=== PATIENT | male | born 1985 | race Caucasian/White ===

== ENCOUNTER 2018-12-05 09:22 | Emergency (ER) | payer BC ==
[~2018-12-05] VITALS: Ht 180.3 cm; Wt 111.0 kg
[~2018-12-05 09:22] MED LIST: ALBU18HF INHALATION; ALBU8.5H8 INH; AMOX1TAB9 PO; AMOX500C2 PO; CETI10CA PO; ERYT1OIN6 RIGHT EYE; GUAI5SYR2 PO; HYDR-3498 PO; HYDR-906 PO; IBUP-1542 PO
[2018-12-05 09:37] VITALS: BP 136/80; PULSE 81; RESP 18; Ht 180.3 cm; Wt 111.0 kg
== END 2018-12-05 11:16 | disposition home or self-care (01) ==
LOC: FTE 09:22
DX: J02.9 Acute pharyngitis, unspecified (principal); E11.9 Type 2 diabetes mellitus without complications
CPT/HCPCS: 36415; 86308; 87880; 99283